=== PATIENT | male | born 1990 | race Caucasian/White ===

== ENCOUNTER 2019-07-31 13:53 | Emergency (ER) | payer SELFPAY ==
[2019-07-31 13:54] VITALS: BP 141/78; PULSE 89; RESP 19; TEMP 36.7; O2SAT 97; BMI 33.0
--- NOTE | 2019-07-31 14:16 | ED.VIS.BACK ---
History of Present Illness Chief Complaint: Back Narrative: Patient presenting secondary to back pain. Patient reports that yesterday he was playing basketball and pulled up for a shot and had a sudden onset of lower back pain. He reports that it is bilateral in his lower back and is a continuous type pain worsened by trying to stand upright. Patient denies that there is any radiation to the legs. No bowel or bladder incontinence. No fevers or unintended weight loss. No history of IV drug use recent surgeries or injections. Tylenol has not been helping. Review of systems otherwise negative. Past Medical History - Allergies and Home Meds Allergies/Adverse Reactions: Allergies No Known Allergies Allergy (Verified 07/31/19 13:55) Past Medical History: None Smoking Status: Current every day smoker Review of Systems All systems negative except as indicated Musculoskeletal: Reports: Back pain Physical Exam Vital Signs/Narrative: Vital Signs Temp Pulse Resp BP Pulse Ox 07/31/19 13:54 98.1 F 89 19 H 141/78 H 97 Inital Vital Signs reviewed: Yes General: Well nourished, Well developed Head: Normocephalic, Atraumatic Eyes: Perrl, EOMI ENT: Moist mucous membranes, No rhinorrhea Neck: Supple, Nontender Cardiovascular: Regular rate, Regular rhythm, No murmurs Respiratory: No distress, CTA bilaterally, Chest nontender Abdomen: Soft, Nontender, Nondistended, Normal bowel sounds, No masses - No evidence of palpable pulsatile mass Back: - - Patient has evidence of flattening of his lumbar lordosis and spasm of his bilateral lumbar paraspinal musculature. No midline tenderness or any evidence of step-offs. 5 out of 5 strength at the hip knee ankle and foot normal sensation over all dermatomes 2+ patellar and Achilles reflexes bilaterally 2+ DP pulses bilaterally symmetric Extremeties: Nontender, No edema Skin: Normal color, No rash Neuro: Alert, Oriented, Normal Strength, Normal Sensation, Normal DTR, Normal Gait Psychological: Normal affect Diagnostic/Tx/Re-eval - Medical Decision Making Patient presented secondary to back pain. History and physical seems consistent with a lumbar strain. There is no signs of neurologic compromise, spinal epidural abscess or hematoma, cauda equina syndrome. Patient was treated with Toradol and Norflex, will be discharged with stretching exercises Naprosyn and Flexeril. All questions were answered patient was discharged. Disposition: Home ED Disposition - Plan for ED Patient: Disposition: Home or Assisted Living Diagnosis: Lumbar strain Instructions: BACK SPASM, No Trauma Prescriptions: cycloBENZAPRine HCl [Flexeril] 10 mg PO TID PRN #20 tab PRN Reason: Muscle Spasm Prescription Printed Naproxen [Naprosyn] 500 mg PO BID PRN #20 tab Prescription Printed Additional Instructions: Followup with your PCP as needed
[2019-07-31] MEDS: Orphenadrine 60 MG/2 ML Ampul IM (14:32)
[2019-07-31] MEDS: Ketorolac 30 MG/ML Syringe IM (14:32)
== END 2019-07-31 15:01 | disposition home or self-care (01) ==
PROVIDERS: Emergency Provider Emergency Medicine
DX: S39.012A Strain of muscle, fascia and tendon of lower back, initial encounter (principal); M62.830 Muscle spasm of back; X58.XXXA Exposure to other specified factors, initial encounter; Y93.67 Activity, basketball; Y92.9 Unspecified place or not applicable; Y99.9 Unspecified external cause status; F17.200 Nicotine dependence, unspecified, uncomplicated
CPT/HCPCS: 96372; 99281

== ENCOUNTER 2020-09-07 19:51 | Observation (INO) | payer SELFPAY ==
--- NOTE | 2020-09-07 10:50 | APP_PTH ---
PATIENT: MORALES JONES LOC: PCU U#:[id number] AGE/SX: 30/M ROOM: [facility] RE09/07/[address]: Dr. Arie Shoemaker MD : 1990 BED: 1 DIS: 09/08/2020 SPEC #: [id number] RECD: 09/08/20 07:16 STATUS: [place] REJes #: [id number] OLGA: 09/07/20 10:[address]: Arie Shoemaker DEPT: SURGICAL PATHOLOGY RECD BY: Jeronimo Garduno ENTERED: 09/08/20 07:41 SP TYPE: APPENDIX OTHR DR: No Primary Care Phys Tissues: Appendix, NOS Procedures: Surgery Specimen Level III HEADER OPERATION: Laparoscopic appendectomy PRE-OP DIAGNOSIS: Acute appendicitis TISSUE SUBMITTED: Appendix MICROSCOPIC DIAGNOSIS Appendix, appendectomy: Acute appendicitis. Acute serositis. AM:connie 09/09/20 MICROSCOPIC DESCRIPTION Slides are reviewed. GROSS DESCRIPTION Received in fixative is one container labeled with the patient's name and designated appendix. The specimen consists of an S-shaped appendix measuring 9 cm in length and up to 0.8 cm in diameter. The attached periappendiceal adipose tissue measures up to 2.5 cm in width. The serosa is congested. No obvious perforation is identified. The lumen does not contain any fecalith. Microbiology Supervisor sections are submitted in one cassette. / SJ:connie 09/08/20 TC:2 CPT: 56215
[2020-09-07 19:52] VITALS: BP 120/71; PULSE 94; RESP 16; TEMP 36.2; O2SAT 97; BMI 30.5
--- NOTE | 2020-09-07 20:03 | ED.DCSUM_ITS ---
History of Present Illness Chief Complaint: Abd Pain Informant: Patient Narrative: 30-year-old male with no significant past medical history presents with right lower quadrant pain for the past 18 to 20 hours. States around 1 AM this morning he began having nausea, vomiting, abdominal pain. States it is right lower quadrant in nature. States it is sharp and intermittent. Admits to anorexia. Denies any constipation or diarrhea. Denies any urinary changes. Denies any scrotal or penile pain. Denies any trauma. Past Medical History - Allergies and Home Meds Allergies/Adverse Reactions: Allergies No Known Allergies Allergy (Verified 09/07/20 19:53) Primary Care Physician: Care Physician,No Primary [Primary Care Provider] - Past Medical History: None Surgical History: no surgical history Lives: With Family Smoking Status: Current every day smoker Alcohol: None Drugs: None Review of Systems General: Denies: Chills, Fever, Sweats Eyes: Denies: Visual changes - bilaterally, Diplopia ENT: Denies: Rhinorrhea, Sore throat Cardiovascular: Denies: Chest pain, Palpitations Respiratory: Denies: Dyspnea, Cough, Dyspnea on exertion Gastrointestinal: Reports: Abdominal pain, Nausea, Vomiting. Denies: Diarrhea, Melena, Hematochezia Genitourinary: Denies: Dysuria, Hematuria, Frequency Musculoskeletal: Denies: Back pain, Extremity Pain Skin: Denies: Rash, Wounds Neurological: Denies: Headache, Weakness, Numbness Physical Exam Vital Signs/Narrative: Vital Signs Temp Pulse Resp BP Pulse Ox 09/07/20 19:52 97.2 F L 94 16 120/71 97 Inital Vital Signs reviewed: Yes General: Well nourished, Well developed, No Acute Distress Head: Normocephalic, Atraumatic Eyes: Perrl, EOMI ENT: Moist mucous membranes, No rhinorrhea Neck: Supple, Nontender Cardiovascular: Regular rate, Regular rhythm, No murmurs Respiratory: No distress, CTA bilaterally, Chest nontender Abdomen: Soft, Nondistended, Normal bowel sounds, - - TTP in the RLQ. Involuntary gaurding. : - - Normal inspection. Back: Nontender, Normal Inspection Extremities: Nontender, No edema Skin: Normal color, No rash Neurological: Alert, Oriented x3, Cranial nerves II-XII grossly intact, Normal Strength, Normal Sensation Psychological: Normal affect, Normal Mood Diagnostic/Tx/Re-eval Clinical Impression(s) from Imaging Studies Abdomen/Pelvis CT 09/07/20 20:15 IMPRESSION: Fluid distended appendix with borderline diameter. Mild pelvic fluid. Early appendicitis cannot be excluded. Mild small bowel ileus. Electronically Signed: Mendoza Bush DO at 21:27 EDT Tel [phone], Service support , Laboratory Data 09/07/20 09/07/20 09/07/20 20:15 20:15 21:27 WBC 19.9 H RBC 5.26 Hgb 16.3 Hct 47.7 MCV 90.7 MCH 31.0 MCHC 34.2 RDW Std Deviation 40.9 RDW Coeff of Addie 12.5 Plt Count 284 MPV 10.7 Immature Gran % (Auto) 0.600 Neut % (Auto) 77.3 H Lymph % (Auto) 12.8 L [place] % (Auto) 8.4 Eos % (Auto) 0.6 Baso % (Auto) 0.3 Absolute Neuts (auto) 15.4 H Absolute Lymphs (auto) 2.55 Nucleated RBC % 0 Differential Comment SEE COMMENT Diff Path Review May foll Platelet Estimate ADEQUATE RBC Morphology N CHROM Anisocytosis RARE Macrocytosis RARE Sodium 139 Potassium 3.4 L Chloride 107 Carbon Dioxide 26.0 Anion Gap 6 BUN 16 Creatinine 0.82 Estim Creat Clear Calc 151.57 Est GFR (MDRD) Af Amer 144 Est GFR (MDRD) Non-Af 119 BUN/Creatinine Ratio 19.5 Glucose 90 Calcium 9.6 Total Bilirubin 1.20 H AST 12 L ALT 27 Alkaline Phosphatase 58 Total Protein 8.1 Albumin 4.3 Globulin 3.8 Albumin/Globulin Ratio 1.1 Lipase 38 L Urine Color Yellow Urine Clarity Clear Urine pH 7.0 Ur Specific [place] 1.005 Urine Protein Negative Urine Glucose (UA) Normal Urine Ketones 50 H Urine Occult Blood 25 H Urine Nitrite Negative Urine Bilirubin Negative Urine Urobilinogen 4 H Ur Leukocyte Esterase Negative Urine RBC 0-5 SEEN Urine WBC 0-5 SEEN Ur Squamous Epith Cells 0-5 SEEN Urine Bacteria 0 SEEN Urine Mucus 0 SEEN - Medical Decision Making Patient appears well nontoxic. Vital signs within normal limits. Leukocytosis of above 19,000. CT concerning for early appendicitis. Patient was given fluid bolus, Zofran, morphine. Spoke with surgeon on-call Dr. Shoemaker who will take the patient to the operating room. Patient was given Zosyn as well as Ativan for increased anxiety. Admitted in stable condition. Impression: 1. Acute appendicitis 2. Leukocytosis ED Disposition - Plan for ED Patient: Disposition: Acute Care Hospital [facility] Referrals: Care Physician,No Primary [Primary Care Provider] -
[2020-09-07] MEDS: Morphine 4 MG/ML Syringe IV (20:10)
[2020-09-07] MEDS: 0.9% Normal Saline 1,000 ML 1000 ML IV (20:10)
[2020-09-07] MEDS: Ondansetron 4 MG/2 ML Vial IV (20:10)
--- NOTE | 2020-09-07 20:15 | CT_ITS ---
STUDY: CT ABDOMEN AND PELVIS WITH CONTRAST REASON FOR EXAM: Male, 30 years old. RLQ PAIN WITH N/V/D RADIATION DOSAGE (If Supplied By Facility): CTDIvol = ( 17.08 ) mGy, DLP = ( 1176.16 ) mGycm TECHNIQUE: Transaxial images were obtained from the dome of the diaphragm to the symphysis pubis without oral contrast. IV 100mL Isovue-370 was administered. Sagittal and coronal images were reconstructed. Individualized dose optimization techniques were used for this CT. COMPARISON: None. FINDINGS: The visualized lung bases are unremarkable. The visualized portions of the heart are within normal limits. Normal liver. Normal gallbladder and extrahepatic biliary system. Normal spleen. Normal pancreas. Normal bilateral adrenal glands. Normal right kidney. Normal left kidney. Normal visualized stomach. Ileus of the small intestine. Normal colon. The appendix is fluid distended and borderline in size. Although there is no significant adjacent mesenteric stranding. Normal abdominal aorta. Normal inferior vena cava. Normal retroperitoneum. Normal urinary bladder. Mild pelvic fluid. Normal abdominal wall. Probable chronic deformity of the left femoral head. CT/Abdomen/Pelvis W IV Cont ONLY IMPRESSION: Fluid distended appendix with borderline diameter. Mild pelvic fluid. Early appendicitis cannot be excluded. Mild small bowel ileus. Electronically Signed: Mendoza Bush DO at 21:27 EDT Tel [phone], Service support ,
[2020-09-07 20:29] LABS: Absolute Lymphocyte Count 2.55 X10^3/uL (0.83-4.51); Absolute Neutrophil Count 15.4 X10^3/uL (2.0-7.7); Basophil# 0.06 X10^3/uL; Basophil% 0.3 % (0-1); Eosinophil# 0.12 X10^3/uL; Eosinophils% 0.6 % (0-5); Hematocrit 47.7 % (40-54); Hemoglobin 16.3 g/dL (13.0-16.5); Lymphocyte # 2.55 X10^3/ul (4.0); Lymphocyte % 12.8 % (19-41); Mean Corp Hgb Conc 34.2 g/dL (32-36); Mean Corpuscular Volume 90.7 fL (80-94); Mean Platelet Vol. 10.7 fl (6.2-12.0); Monocyte# 1.68 X10^3/uL; Monocyte% 8.4 % (0-10); NRBC Flagged by Analyzer 0 % (0-5); Neutrophil # 15.38 X10^3/uL (2.7-7.7); Neutrophil % 77.3 % (47-70); POSITIVE DIFFERENTIAL YES; Platelet Count 284 K/mm3 (150-450); RBC Distribution Width CV 12.5 % (11.6-14.6); RBC Distribution Width SD 40.9 fl (35.1-43.9); Red Blood Count 5.26 M/mm3 (4.6-6.2); White Blood Count 19.9 K/mm3 (4.4-11.0)
[2020-09-07 20:36] LABS: Differential Indicated SCAN CRITERIA MET
[2020-09-07 20:52] LABS: ALB/GLOB Ratio 1.1 RATIO (0.9-2.4); AST(SGOT) 12 U/L (15-37); Alanine Aminotransfer ALT/SGPT 27 U/L (16-61); Albumin, Serum 4.3 g/dL (3.2-5.0); Alkaline Phosphatase 58 U/L (45-117); Anion Gap 6 (5-15); BUN 16 mg/dL (7-18); BUN/Creat Ratio 19.5 RATIO (10-20); Calcium,Total 9.6 mg/dL (8.5-10.1); Chloride 107 mmol/L (98-107); Creatinine, Serum 0.82 mg/dL (0.70-1.30); EST Glomerular Filtration Rate 119 mL/min (>60); Est Glom Filt Rate - Afr Amer 144 mL/min (>60); Estimated Creatinine Clearance 151.57 ml/min; Globulin 3.8 g/dL (2.2-4.2); Glucose 90 mg/dL (74-106); Lipase 38 U/L (73-393); Potassium 3.4 mmol/L (3.5-5.1); Protein, Total 8.1 g/dL (6.4-8.2); Sodium Level 139 mmol/L (136-145)
[2020-09-07 21:03] LABS: Platelet Estimate ADEQUATE (ADEQ)
[2020-09-07 21:04] LABS: Anisocytosis RARE; Macrocytosis RARE; Red Cell Morphology N CHROM NORMAL (NORM C&C)
[2020-09-07 21:36] LABS: Bacteria 0 SEEN /hpf (None Seen); Mucous, Urine 0 SEEN /hpf (<or=2+)
[2020-09-07 21:43] LABS: Color, Urine Yellow (Yellow); Glucose, Dipstick Normal (Normal); Ketone-Dipstick 50 mg/dl (Negative); Leukocyte Esterase-Dipstick Negative /ul (Negative); Nitrite-Dipstick Negative (Negative); Occult Blood-Urine 25 /ul (Negative); Protein-Dipstick Negative (Negative); Specific Gravity, Urine 1.005 (1.002-1.030); Urine Bilirubin Dipstick Negative (Negative); Urine Clarity Clear (Clear); Urine Urobilinogen 4 mg/dl (Normal)
[2020-09-07 21:48] LABS: Squamous Epithelial Cells - UA 0-5 SEEN /hpf (0-5)
[2020-09-07 21:50] LABS: White Blood Cells 0-5 SEEN /hpf (0-5)
[2020-09-07 21:51] LABS: Red Blood Cells-Urine 0-5 SEEN /hpf (0-5)
[2020-09-07] MEDS: LORazepam 2 MG/ML Syringe 0.5 MG IV (22:13)
[2020-09-07 22:17] VITALS: BP 111/63; PULSE 61; RESP 16; TEMP 37; O2SAT 98; BMI 30.5
--- NOTE | 2020-09-07 22:17 | PCM.CONS.GEN ---
Problem List (1) Acute appendicitis Status: Acute Qualifiers: Acute appendicitis type: with localized peritonitis Appendicitis gangrene presence: unspecified whether gangrene present Appendicitis perforation presence: without perforation Appendicitis abscess presence: without abscess Qualified Code(s): K35.30 - Acute appendicitis with localized peritonitis, without perforation or gangrene Reason for Consult Date of Consultation: 09/07/20 History of Present Illness: 30-year-old male with no significant past medical history presents with right lower quadrant pain for the past 18 to 20 hours. States around 1 AM this morning he began having nausea, vomiting, abdominal pain. States it is right lower quadrant in nature. States it is sharp and intermittent. Admits to anorexia. Denies any constipation or diarrhea. Denies any urinary changes. Denies any scrotal or penile pain. Denies any trauma. CT scan shows early acute appendicitis with a dilated and fluid-filled appendix. Past Medical History Allergies No Known Allergies Allergy (Verified 09/07/20 19:53) Home Medications: Ambulatory Orders Medication Instructions Recorded NK 09/07/20 Surgical History: no surgical history Lives: With Family Smoking Status: Current every day smoker Alcohol: None Drugs: None Review of Systems Constitutional: Denies: Chills, Fever, Weight Change Cardiovascular: Denies: Chest Pain, Chest Pressure, Chest Tightness, Palpitations Respiratory: Denies: Cough, Hemoptysis, Shortness of breath at rest, Shortness of breath upon exertion, Wheezing Gastrointestinal: Reports: Abdominal Pain - Physical Exam Vitals/I&O's: Vital Signs Temp Pulse Resp BP Pulse Ox 97.2 F L 94 16 120/71 97 09/07/20 19:52 09/07/20 19:52 09/07/20 19:52 09/07/20 19:52 09/07/20 19:52 Oxygen Delivery Method Room Air Weight: 231 lb 11.293 oz Body Mass Index (BMI) 30.5 Intake and Output for Last 24 Hours 09/05/20 09/06/20 09/07/20 23:59 23:59 23:59 Intake Total 1000 / 1000 Balance 1000 / 1000 General: Alert, Oriented x3 Lungs: Clear to auscultation Cardiovascular: Regular rate, Regular Rhythm, No murmurs Abdomen: Tender - Positive Rovsing sign tenderness is greatest in the right lower quadrant. He has voluntary guarding some rebound tenderness is identified. Laboratory Results 10/13/20 20:15: WBC 19.9 H, RBC 5.26, Hgb 16.3, Hct 47.7, MCV 90.7, MCH 31.0, MCHC 34.2, RDW Std Deviation 40.9, RDW Coeff of Addie 12.5, Plt Count 284, MPV 10.7, Immature Gran % (Auto) 0.600, Neut % (Auto) 77.3 H, Lymph % (Auto) 12.8 L, [place] % (Auto) 8.4, Eos % (Auto) 0.6, Baso % (Auto) 0.3, Absolute Neuts (auto) 15.4 H, Absolute Lymphs (auto) 2.55, Nucleated RBC % 0, Differential Comment SEE COMMENT, Diff Path Review March foll, Platelet Estimate ADEQUATE, RBC Morphology N CHROM, Anisocytosis RARE, Macrocytosis RARE 09/07/20 20:15: Sodium 139, Potassium 3.4 L, Chloride 107, Carbon Dioxide 26.0, Anion Gap 6, BUN 16, Creatinine 0.82, Estim Creat Clear Calc 151.57, Est GFR (MDRD) Af Amer 144, Est GFR (MDRD) Non-Af 119, BUN/Creatinine Ratio 19.5, Glucose 90, Calcium 9.6, Total Bilirubin 1.20 H, AST 12 L, ALT 27, Alkaline Phosphatase 58, Total Protein 8.1, Albumin 4.3, Globulin 3.8, Albumin/Globulin Ratio 1.1, Lipase 38 L 09/07/20 21:27: Urine Color Yellow, Urine Clarity Clear, Urine pH 7.0, Ur Specific [place] 1.005, Urine Protein Negative, Urine Glucose (UA) Normal, Urine Ketones 50 H, Urine Occult Blood 25 H, Urine Nitrite Negative, Urine Bilirubin Negative, Urine Urobilinogen 4 H, Ur Leukocyte Esterase Negative, Urine RBC 0-5 SEEN, Urine WBC 0-5 SEEN, Ur Squamous Epith Cells 0-5 SEEN, Urine Bacteria 0 SEEN, Urine Mucus 0 SEEN Assessment/Plan All Active Problems Acute appendicitis (Acute) Plan will be to perform a laparoscopic appendectomy. Risk benefits include bleeding infection possible need for drain patient also understands blood clots heart attacks pneumonia strokes up to including are part of general anesthetic risk. All questions asked were answered he understands that he may actually have a Meckel's diverticulum in addition to were only causing his discomfort with a normal-looking appendix. He is willing to proceed. Office Visits / Consults: [id number] IP Consult L4 - Modifier 57
[2020-09-07 22:23] VITALS: BP 111/63; PULSE 61; RESP 16; TEMP 37; O2SAT 98
--- NOTE | 2020-09-07 22:57 | ED.RN ---
report given to OR staff.
--- NOTE | 2020-09-07 23:23 | PCM.OPRPT ---
Problem List (1) Acute appendicitis Status: Acute Qualifiers: Acute appendicitis type: with localized peritonitis Appendicitis gangrene presence: unspecified whether gangrene present Appendicitis perforation presence: without perforation Appendicitis abscess presence: without abscess Qualified Code(s): K35.30 - Acute appendicitis with localized peritonitis, without perforation or gangrene Report of Operation Date of Procedure: 09/07/20 Pre-Operative Diagnosis: Acute appendicitis Post-Operative Diagnosis: Same Surgery/Procedure Performed:: Laparoscopic appendectomy Type of Anesthesia:: General Anesthesiologist: Cristy Naidu Specimen's removed: Appendix Estimated Blood Loss (mL): < 25 cc Fluids Replaced: 500 cc Description of Procedure: Patient was brought into the operating room. Placed in the supine position. Under excellent general trach intubation abdomen was sterilely prepped and draped in usual fashion. Local was injected infraumbilically. Dissection was carried down to the fascia. The fascia was grasped with a [place]. Varies needle was placed inside the abdomen. The abdomen was insufflated 15 torr. A 10/12 trocar was placed in the difficulty. Patient was placed the headdown position rotated to the left. A suprapubic #5 trocar was placed in left lower quadrant #5 trochars placed both of these under direct visualization without injury to underlying structures. Appendix was identified I took down the mesoappendix with the Enseal I had excellent hemostasis I then transected the base of the appendix with a 45 linear cutter placed a specimen a specimen bag delivered through the umbilical port. Irrigated the right lower quadrant good pneumostasis was noted irrigated the pelvis turbid fluid was removed. I ran the small bowel no Meckel's diverticulum was identified. Trochars were removed under direct visualization good mistakes this was noted. Closed the fascia the umbilical port with a [id number] stitch of 0 Vicryl. Skin incisions were closed with subcuticular stitches of 4-0 Monocryl. Steri-Strips were applied sterile dressings were applied and the patient tolerated the procedure well. - Admit VTE Documentation VTE Present on Admission: No VTE Mechan Device Prophylaxis: SCD's VTE Pharm Prophylaxis ordered?: No Reason prophylaxis not ordered:: Treatment Not Indicated [id number]: [id number] Laparoscopy appendectomy
[2020-09-07] MEDS: Bupivacaine Mpf 0.5% 30 ML VIAL (23:54)
[2020-09-08] VITALS (9 sets, daily range): BP systolic 106–132; BP diastolic 53–70; PULSE 66–90; RESP 16; TEMP 36.2–36.8; O2SAT 95–100; BMI 30.9
[2020-09-08] MEDS: 0.9% Normal Saline 1,000 ML 100 ML IV (01:07)
[2020-09-08 05:22] LABS: Absolute Lymphocyte Count 0.66 X10^3/uL (0.83-4.51); Absolute Neutrophil Count 11.3 X10^3/uL (2.0-7.7); Basophil# 0.02 X10^3/uL; Basophil% 0.2 % (0-1); Eosinophil# 0.01 X10^3/uL; Eosinophils% 0.1 % (0-5); Hematocrit 43.5 % (40-54); Hemoglobin 14.4 g/dL (13.0-16.5); Lymphocyte # 0.66 X10^3/ul (4.0); Lymphocyte % 5.4 % (19-41); Mean Corp Hgb Conc 33.1 g/dL (32-36); Mean Corpuscular Hgb 30.9 pg (27.0-32.0); Mean Corpuscular Volume 93.3 fL (80-94); Monocyte# 0.16 X10^3/uL; Monocyte% 1.3 % (0-10); NRBC Flagged by Analyzer 0 % (0-5); Neutrophil # 11.34 X10^3/uL (2.7-7.7); Neutrophil % 92.5 % (47-70); Platelet Count 219 K/mm3 (150-450); RBC Distribution Width CV 12.8 % (11.6-14.6); RBC Distribution Width SD 43.8 fl (35.1-43.9); Red Blood Count 4.66 M/mm3 (4.6-6.2); White Blood Count 12.3 K/mm3 (4.4-11.0)
[2020-09-08 05:38] LABS: Anion Gap 7 (5-15); BUN 17 mg/dL (7-18); BUN/Creat Ratio 23.7 RATIO (10-20); Calcium,Total 8.7 mg/dL (8.5-10.1); Chloride 105 mmol/L (98-107); Creatinine, Serum 0.72 mg/dL (0.70-1.30); EST Glomerular Filtration Rate 139 mL/min (>60); Est Glom Filt Rate - Afr Amer 168 mL/min (>60); Estimated Creatinine Clearance 172.62 ml/min; Glucose 132 mg/dL (74-106); Potassium 3.5 mmol/L (3.5-5.1); Sodium Level 137 mmol/L (136-145)
[2020-09-08] MEDS: oxyCODONE 5 MG Tablet PO (09:11)
--- NOTE | 2020-09-08 10:44 | PCM.DC.APPY ---
Discharge Diet: Light diet - advance as tolerated Discharge Activity: May Not Drive - for 5 days or while taking narcotic pain meds. May shower in (days): 1 Call your doctor if your incision/area has: Continuous Slow Oozing, Sudden Increased Bleeding, Increased Pain/ Swelling, Increased Redness, Foul Smelling Discharge Call your doctor if you observe: Fever of 101 or Higher Suture Line Care: Avoid Pulling/Pushing, Avoid Pinching/Bending Additional Dressing/Incision Instructions:: Keep dressing clean and dry. Remove dressing in 2 days. Leave steri strips for 1 week. May protect with a gauze bandaid. Medications to take at Discharge Oxycodone [Oxyir] 10 mg PO Q6H PRN PRN 4 Days #24 tablet 09/08/20 Allergies/Adverse Reactions: Allergies No Known Allergies Allergy (Verified 09/07/20 19:53) The following prescriptions were given: Oxycodone [Oxyir] 10 mg PO Q6H PRN PRN 4 Days #24 tablet PRN Reason: Pain Score 1-10 Transmission Status: Sent to [facility] Primary Care Physician: Care Physician,No Primary [Primary Care Provider] - Test Results: Test results from this visit will be discussed in further detail at your follow-up appointment, if applicable. Please Follow Up With: Lynnette Reyes, SUZY-C - [phone] When: 7-10 days Proposed Discharge Date: 09/08/20
--- NOTE | 2020-09-08 10:45 | PCM.PN.SRG ---
Patient Problems: Active and Suspected Problems Acute appendicitis (Acute) Subjective: Patient evaluated resting comfortably in bed. Patient notes very minimal amount of abdominal discomfort. Denies nausea, vomiting, fever. Urinating well. Negative flatus. Tolerating diet well. - Physical Exam Vitals/I&O's: Vital Signs Temp Pulse Resp BP Pulse Ox 97.8 F 67 16 113/53 L 96 09/08/20 08:56 09/08/20 08:56 09/08/20 08:56 09/08/20 08:56 09/08/20 08:56 Oxygen Delivery Method Room Air Weight: 234 lb 5.622 oz Body Mass Index (BMI) 30.9 Intake and Output for Last 24 Hours 09/06/20 09/07/20 09/08/20 23:59 23:59 23:59 Intake Total 1050 / 1050 120 / 120 Balance 1050 / 1050 120 / 120 General: Alert, Oriented x3, Cooperative Abdomen: Soft, Non Tender, Hypoactive Bowel Sounds, - - Incisions c/d/i. No erythema or infection noted Laboratory Results 09/07/20 20:15: WBC 19.9 H, RBC 5.26, Hgb 16.3, Hct 47.7, MCV 90.7, MCH 31.0, MCHC 34.2, RDW Std Deviation 40.9, RDW Coeff of Addie 12.5, Plt Count 284, MPV 10.7, Immature Gran % (Auto) 0.600, Neut % (Auto) 77.3 H, Lymph % (Auto) 12.8 L, [place] % (Auto) 8.4, Eos % (Auto) 0.6, Baso % (Auto) 0.3, Absolute Neuts (auto) 15.4 H, Absolute Lymphs (auto) 2.55, Nucleated RBC % 0, Differential Comment SEE COMMENT, Diff Path Review May foll, Platelet Estimate ADEQUATE, RBC Morphology N CHROM, Anisocytosis RARE, Macrocytosis RARE 09/07/20 20:15: Sodium 139, Potassium 3.4 L, Chloride 107, Carbon Dioxide 26.0, Anion Gap 6, BUN 16, Creatinine 0.82, Estim Creat Clear Calc 151.57, Est GFR (MDRD) Af Amer 144, Est GFR (MDRD) Non-Af 119, BUN/Creatinine Ratio 19.5, Glucose 90, Calcium 9.6, Total Bilirubin 1.20 H, AST 12 L, ALT 27, Alkaline Phosphatase 58, Total Protein 8.1, Albumin 4.3, Globulin 3.8, Albumin/Globulin Ratio 1.1, Lipase 38 L 09/07/20 21:27: Urine Color Yellow, Urine Clarity Clear, Urine pH 7.0, Ur Specific [place] 1.005, Urine Protein Negative, Urine Glucose (UA) Normal, Urine Ketones 50 H, Urine Occult Blood 25 H, Urine Nitrite Negative, Urine Bilirubin Negative, Urine Urobilinogen 4 H, Ur Leukocyte Esterase Negative, Urine RBC 0-5 SEEN, Urine WBC 0-5 SEEN, Ur Squamous Epith Cells 0-5 SEEN, Urine Bacteria 0 SEEN, Urine Mucus 0 SEEN 09/08/20 04:52: WBC 12.3 H, RBC 4.66, Hgb 14.4, Hct 43.5, MCV 93.3, MCH 30.9, MCHC 33.1, RDW Std Deviation 43.8, RDW Coeff of Addie 12.8, Plt Count 219, MPV 11.0, Immature Gran % (Auto) 0.500, Neut % (Auto) 92.5 H, Lymph % (Auto) 5.4 L, [place] % (Auto) 1.3, Eos % (Auto) 0.1, Baso % (Auto) 0.2, Absolute Neuts (auto) 11.3 H, Absolute Lymphs (auto) 0.66 L, Nucleated RBC % 0 09/08/20 04:52: Sodium 137, Potassium 3.5, Chloride 105, Carbon Dioxide 25.0, Anion Gap 7, BUN 17, Creatinine 0.72, Estim Creat Clear Calc 172.62, Est GFR (MDRD) Af Amer 168, Est GFR (MDRD) Non-Af 139, BUN/Creatinine Ratio 23.7 H, Glucose 132 H, Calcium 8.7 Current Medications Hydromorphone HCl (Hydromorphone 0.5 Mg/0.5 Ml Syringe) 0.5 - 1 mg IV Q2H PRN PRN PRN Reason: Pain Score 1-10 Sodium Chloride () 1,000 mls @ 100 mls/hr IV .Q10H MONSE Last Admin: 09/08/20 01:07 Dose: 100 mls/hr Documented by: Piperacillin Sod/Tazobactam (Sod 3.375 gm/ Sodium Chloride) 50 mls @ 12.5 mls/hr IV Q8 MONSE Last Admin: 09/08/20 05:43 Dose: 12.5 mls/hr Documented by: Sodium Chloride () 250 mls @ 15 mls/hr IV .[id number] PRN PRN Reason: Saline Flush Last Infusion: 09/08/20 05:43 Dose: 0 mls/hr Documented by: Sodium Chloride () 250 mls @ 15 mls/hr IV .[id number] PRN PRN Reason: Additional IVPB Infusion Ondansetron HCl (Ondansetron 4 Mg/2 Ml Vial) 4 mg IV Q8H PRN PRN PRN Reason: NAUSEA Oxycodone HCl (Oxycodone 5 Mg Tablet) 5 - 10 mg PO Q4H PRN PRN PRN Reason: Pain Score 1-10 Last Admin: 09/08/20 09:11 Dose: 10 mg Documented by: Sodium Chloride (0.9% Saline Lock 10 Ml Syringe) 10 - 40 ml IV UD PRN PRN Reason: SALINE FLUSH Medical Necessity - Tobacco Use Smoking Status: Current every day smoker Assessment/Plan All Active Problems Acute appendicitis (Acute) I am following this patient with Dr. Shoemaker S/p appendectomy Ready for discharge Home-going instructions were discussed Inpatient E&M: [id number] [facility] L[facility] - No charge
[2020-09-08 14:54] LABS: Pathologist Review Reviewed
== END 2020-09-08 10:48 | disposition home or self-care (01) ==
LOC: ED 22:11 → SDC 22:24 → AC 22:24 → PCU 23:30
PROVIDERS: Admitting Provider Surgery; Emergency Provider Emergency Medicine; Referring Provider Surgery; Visit Provider Surgery
PROC: 0DTJ4ZZ Resection of Appendix, Percutaneous Endoscopic Approach (ICD-10-PCS; CPT 44970; principal; 2020-09-07 10:50)
DX: K35.30 Acute appendicitis with localized peritonitis, without perforation or gangrene (principal); I10 Essential (primary) hypertension; F17.200 Nicotine dependence, unspecified, uncomplicated
CPT/HCPCS: 00840; 44970; 36415; 74177; 80048; 80053; 81001; 83690; 85025; 88304; 96361; 96365; 96366; 96375; 99218; 99251; 99281; J7030; J7050; J7120; Q9967; A4216; C1760; G0378; G0463; J2405

== ENCOUNTER 2025-01-08 04:04 | Emergency (ER) | payer SELFPAY ==
[2025-01-08 04:05] VITALS: BP 143/90; PULSE 68; RESP 18; TEMP 36.6; O2SAT 96; BMI 32.0
--- NOTE | 2025-01-08 04:22 | EDS_ITS ---
HPI HPI - GI History of Present Illness Chief Complaint: Nausea/Vomiting Informant: patient Abdominal Pain/Flank Pain Onset: Days Context: Gradual Onset Timing: Continuous Quality: Aching Location: Epigastric Current Severity: Mild Maximum Severity: Moderate Worsened by: Nothing Relieved by: Nothing Nausea/Vomiting/Emesis GI Symptom: Positive for Nausea and Vomiting Onset: Days Severity: Mild Diarrhea/Melena/Hematochezia GI Symptom: Positive for Diarrhea Onset: Days Stool Quality: Positive for Watery and - (Resolved 1 to 2 days ago.) Associated Symptoms Associated Symptoms: Negative for Dysuria, Frequency, Hematuria or Urgency Narrative Narrative: Healthy 34-year-old male prior appendectomy. No other prior abdominal surgeries. No other medical problems. States his entire house and family became sick on Sunday with nausea vomiting diarrhea. He said the rest of the family has improved and her symptoms have resolved. He still having nausea vomiting. Says his diarrhea resolved 1 to 2 days ago. No dysuria. Complaining of epigastric abdominal discomfort. No hematemesis. No melena. Prior similar symptoms: Yes Recent Illness/Hospitalization: No [facility] Medical History (Updated 01/08/25 @ 04:[address] Allen Green MD) Acute appendicitis Medical History no medical history no medical history Home Medications ?Medication ?Instructions ?Recorded ?Last Taken ?Type ondansetron 4 mg disintegrating 4 mg PO Q6H PRN nausea and 01/08/25 Unknown Rx tablet vomiting #7 tabs potassium chloride 20 mEq 20 meq PO BID 7 days #14 tab s 01/08/25 Unknown Rx tablet,extended release(part/cryst) Allergy/AdvReac Type Severity Reaction Status Date / Time No Known Allergies Allergy Verified 01/08/25 04:05 Family History no significant family his Surgical History History of laparoscopic appendectomy (~09/07/20) Social History Smoking Status: Current every day smoker tobacco type: cigarettes ROS ROS ED ROS Narrative Nausea, vomiting, diarrhea and abdominal discomfort. Constitutional Constitutional ED: Denies chills or fever(s) ENT ENT ED: Denies ear pain Cardiovascular Cardiovascular: Denies chest pain Respiratory/Chest Respiratory/Chest: Denies cough or dyspnea Gastrointestinal Gastrointestinal: Reports abdominal pain, diarrhea and vomiting; Denies consti pation or melena Genitourinary Genitourinary ED: Denies dysuria or hematuria Musculoskeletal Musculoskeletal: Denies arthralgias Integumentary Denies abscess Neurologic Neurologic: Denies headache(s) Psychiatric Psychiatric: Denies anxiety Endocrine Endocrinology: Denies polydipsia Hematologic/Lymphatic Hematologic/Lymphatic: Denies easy bleeding Allergic/Immunologic Allergic/Immunologic ED: Denies mouth swelling EXAM Physical Exam Narrative Exam Narrative: Well-appearing 34-year-old male. Vital signs are stable afebrile. He does not look septic or toxic or significantly dehydrated. He sitting upright in bed. Significant other at bedside. H EENT exam pupils round react light. Mildly dry mucous membranes. Neck nontender no lymphadenopathy. Lungs clear. Heart regular rate and rhythm rate about 70 no murmur. Chest wall nontender. Abdomen soft nondistended normal bowel sounds without peritoneal signs. He really has a very benign abdomen there is no reproducible pain. Both the right upper and right lower quadrants are unremarkable. No hernia or mass. No pulsatile mass. No signs of obstruction or distention. Moving all 4 extremities. Nontender no edema. Skin no rashes. Back nontender. He is awake and alert. Const Vital Signs: 01/08/25 04:05 Temperature 97.8 F Temperature Source Oral Pulse Rate 68 Respiratory Rate 18 Blood Pressure 143/90 H Blood Pressure Mean 107 Pulse Ox 96 Oxygen Delivery Method Room Air Positive well nourished and well developed; Negative for cachectic, contractures or unkempt General Appearance ED: well developed and NAD; Negative for unkempt, cachectic, contractures or pallor Nutritional Appearance: Negative for cachectic HEENT Reports dry mucous membranes normocephalic and atraumatic Mouth ED: Yes dry mucous membranes Mouth: dry mucous membranes Eyes PERRL and EOMs intact bilaterally Neck no lymphadenopathy, supple and no JVD Resp normal respiratory effort and clear to auscultation bilaterally Cardio regular rate, regular rhythm, S1 normal heart sound, S2 normal heart sound and no murmurs GI non-tender, non-distended and no masses GI Narrative: No reproducible abdominal pain. No obstruction. No hernia or mass. Auscultation: normoactive bowel sounds Palpation: soft; Negative for tender, guarding, rigid, hernia, mass, pulsatile mass or rebound tenderness present Back/Spine no CVA tenderness General Back: Negative for CVA tenderness Cervical Spine: Negative for cervical spine tenderness Thoracic Spine / Upper Back: Negative for thoracic spinal tenderness Lumbar Spine / Lower Back: Negative for lumbar spinal tenderness Coccyx: Negative for other Extremity full ROM General Extremety ED: Negative for edema General Extremity: Negative for edema Neuro CN's II-XII intact bilaterally and moves all extremities Sensorium / Orientation: alert, oriented to person, oriented to place and oriented to time; Negative for orientation impaired or confused Motor Exam: strength 5/5 throughout Psych mental status grossly normal and thought process normal Appearance: Negative for unkempt Attitude: No agitated Mood & Affect: Negative for depressed, anxious or tearful Skin no wounds General Skin Exam: Negative for jaundice or pallor Lesions: no lesions Rashes: no rashes Trauma: Negative for abrasion Nails: Negative for discolored MDM MDM MDM Narrative Medical decision making narrative: 34-year-old male nausea, vomiting and diarrhea family similar symptoms clinically and exam are consistent with a viral gastroenteritis. Mild dehydration. To be treated with IV fluids. Screening labs. Currently I do not think he needs any imaging. We treated with IV fluids, Zofran and p.o. fluids and reassess. Repeat exam around 4:55 AM patient states he began drinking water and became more nauseated so we will get the second dose of Zofran. His abdomen remains benign. There is no tenderness or localizing tenderness. No signs of obstruction. Repeat exam at 5:58 AM. Abdomen remains benign. Nontender. He is feeling better after his third dose of Zofran. Has been able to hold down some p.o. fluids. He is comfortable being discharged home. Treated as a viral gastroenteritis. Zofran for nausea. Potassium for his hypokalemia. Return if worse or follow-up with his doctor if not improving. History & Record Review Discussion w/independent historian: Patient Lab Data Attestation: I reviewed the patient's lab results. Lab results narrative: CBC shows a white count 13.1. H&H is 16 and 44. Platelets 319. Electrolytes show sodium 134. Potassium 2.9. Gap at 9. BUN 26 creatinine 0.9 consistent with dehydration. Glucose 131. Liver enzymes unremarkable. Lipase at 17. Labs: Laboratory Results - last 24 hr 01/08/25 04:16 WBC 13.1 H RBC 5.34 Hgb 16.4 Hct 44.8 MCV 83.9 MCH 30.7 MCHC 36.6 H RDW Std Deviation 37.1 RDW Coeff of Addie 12.2 Plt Count 319 MPV 9.7 Immature Gran % (Auto) 0.600 Neut % (Auto) 71.5 H Lymph % (Auto) 14.2 L [place] % (Auto) 12.5 H Eos % (Auto) 0.6 Baso % (Auto) 0.6 Absolute Neuts (auto) 9.4 H Absolute Lymphs (auto) 1.85 Nucleated RBC % 0 Sodium 134 L Potassium 2.9 L Chloride 96 L Carbon Dioxide 29.0 Anion Gap 9 BUN 26 H Creatinine 0.91 Estim Creat Clear Calc 147.30 Est GFR (MDRD) Af Amer 124 Est GFR (MDRD) Non-Af 102 BUN/Creatinine Ratio 28.5 H Glucose 131 H Calcium 9.4 Total Bilirubin 1.30 H AST 19 ALT 33 Alkaline Phosphatase 53 Total Protein 8.2 Albumin 4.2 Globulin 4.0 Albumin/Globulin Ratio 1.0 Lipase 17 L Discharge Plan Triage Chief Complaint: Nausea/Vomiting ED Provider: Allen Green Dx/Rx/DC Orders Clinical Impression: Viral gastroenteritis, Acute hypokalemia Instructions: ED Gastroenteritis, Viral (Adult) Prescriptions: New ondansetron 4 mg tablet,disintegrating 4 mg PO Q6H PRN (Reason: nausea and vomiting) Qty: 7 0RF potassium chloride 20 mEq tablet,ER particles/crystals 20 meq PO BID 7 Days Qty: 14 0RF Primary Care Provider: Care Physician,No Primary Referrals: Duane Cruz MD [Med Staff - Delivery Driver Assistant] - 1-2 Days if not improving Care Physician,No Primary [Primary Care Provider] - Activity Restrictions/Additional Instructions: Plenty of fluids and rest. Slowly increase your diet as tolerated. Start with water, 7-Up and Gatorade. Popsicles and ice chips. Zofran as needed for nausea. You may swallow it or let it dissolve under your tongue. Return if unable to keep fluids down or feeling worse. Follow-up with a local primary care physician if not improving. K-Dur which is potassium to replace your potassium that is low currently. That is from all the vomiting and diarrhea. Print Language: Croatian Disposition Disposition: Home, Self Care
[2025-01-08] MEDS: 0.9% Normal Saline (1000mL) 1,000 ML 999 ML IV (04:25)
[2025-01-08] MEDS: Ondansetron 4 MG/2 ML Vial IV ×3 (04:25→05:21)
[2025-01-08 04:28] LABS: Absolute Lymphocyte Count 1.85 X10^3/uL (0.83-4.51); Absolute Neutrophil Count 9.4 X10^3/uL (2.0-7.7); Basophil# 0.08 X10^3/uL; Basophil% 0.6 % (0-1); Eosinophil# 0.08 X10^3/uL; Eosinophils% 0.6 % (0-5); Hematocrit 44.8 % (40-54); Hemoglobin 16.4 g/dL (13.0-16.5); Lymphocyte # 1.85 X10^3/ul (0.83-4.51); Lymphocyte % 14.2 % (19-41); Mean Corp Hgb Conc 36.6 g/dL (32-36); Mean Corpuscular Hgb 30.7 pg (27.0-32.0); Mean Corpuscular Volume 83.9 fL (80-94); Mean Platelet Vol. 9.7 fl (6.2-12.0); Monocyte# 1.63 X10^3/uL; Monocyte% 12.5 % (0-10); NRBC Flagged by Analyzer 0 % (0-5); Neutrophil # 9.35 X10^3/uL (2.7-7.7); Neutrophil % 71.5 % (47-70); POSITIVE DIFFERENTIAL YES; Platelet Count 319 K/mm3 (150-450); RBC Distribution Width CV 12.2 % (11.6-14.6); RBC Distribution Width SD 37.1 fl (35.1-43.9); Red Blood Count 5.34 M/mm3 (4.6-6.2); White Blood Count 13.1 K/mm3 (4.4-11.0)
[2025-01-08 04:43] LABS: Differential Indicated SCAN CRITERIA MET
[2025-01-08 04:48] LABS: AST(SGOT) 19 U/L (15-37); Alanine Aminotransfer ALT/SGPT 33 U/L (16-61); Albumin, Serum 4.2 g/dL (3.2-5.0); Alkaline Phosphatase 53 U/L (45-117); Anion Gap 9 (5-15); BUN 26 mg/dL (7-18); BUN/Creat Ratio 28.5 RATIO (10-20); Calcium,Total 9.4 mg/dL (8.5-10.1); Chloride 96 mmol/L (98-107); Creatinine, Serum 0.91 mg/dL (0.70-1.30); EST Glomerular Filtration Rate 102 mL/min (>60); Est Glom Filt Rate - Afr Amer 124 mL/min (>60); Glucose 131 mg/dL (74-106); Lipase 17 U/L (73-393); Potassium 2.9 mmol/L (3.5-5.1); Protein, Total 8.2 g/dL (6.4-8.2); Sodium Level 134 mmol/L (136-145)
[2025-01-08 06:00] VITALS: BP 137/76; PULSE 59; RESP 16; TEMP 36.6; O2SAT 98
[2025-01-08 06:43] LABS: Differential Comment SCANNED
== END 2025-01-08 06:06 | disposition home or self-care (01) ==
PROVIDERS: Emergency Provider Emergency Medicine; Visit Provider Emergency Medicine
DX: A08.4 Viral intestinal infection, unspecified (principal); E86.0 Dehydration; E87.6 Hypokalemia; F17.210 Nicotine dependence, cigarettes, uncomplicated
CPT/HCPCS: 80053; 83690; 85025; 96361; 96374; 96376; 99284; A4216; J2405